=== PATIENT | male | born 2000 | race Two or more races ===

== ENCOUNTER 2023-07-12 12:11 | Emergency (ER) | payer OTHER ==
[~2023-07-12] VITALS: Ht 162.6 cm; Wt 80.7 kg
[2023-07-12] MEDS ORDERED: SUCRALFATE 1 G TABLET PO ONE (14:30)
[2023-07-12] MEDS ORDERED: 0.9 % SODIUM CHLORIDE 1,000 ML IV ONE (14:30)
[2023-07-12] MEDS ORDERED: ONDANSETRON HCL 2 MG/ML VIAL IV ONE (14:30)
[2023-07-12] MEDS ORDERED: FAMOTIDINE/PF 20 MG/2 ML VIAL IV ONE (14:30)
[2023-07-12 15:33] LABS: URINE APPEARANCE Clear; URINE BILIRRUBIN Negative (NEGATIVE); URINE BLOOD Negative; URINE COLOR Yellow; URINE GLUCOSE Negative (NEGATIVE); URINE LEUKOCYTE Negative; URINE NITRATE Negative; URINE PROTEIN Negative (NEGATIVE); URINE UROBILINOGEN 0.2 E.U./dl
[2023-07-12 15:34] LABS: URINE BACTERIA 22.6 uL (0.0-1933); URINE RBC 475.4 uL (0.0-20.8); URINE WBC 5.6 uL (0.0-23.2)
[2023-07-12 15:42] LABS: HEMATOCRIT 47.9 % (39.0-48.0); HEMOGLOBIN 15.9 g/dL (13-16.00); MEAN CELL VOLUME 76.1 fL (80.0-100.00); MEAN CORPUSCULAR HEMOGLOBIN 25.3 pg (27.00-32.0); MEAN CORPUSCULAR HGB CONC 33.3 g/dl (32.0-36.0); PLATELET COUNT 207 K/uL (150-450); RED BLOOD COUNT 6.29 M/uL (4.00-6.00); RED CELL DISTRIBUTION WIDTH 15.2 % (11.5-14.5)
[2023-07-12 15:59] LABS: ALBUMIN 4.1 gm/dL (3.4-5.0); BILIRUBIN TOTAL 1.03 mg/dL (0.3-1.2); CALCIUM 8.9 mg/dL (8.5-10.1); CREATININE SERUM 0.99 mg/dL (0.70-1.30); GFR 92.11; GLOBULINA 3.8 G/DL (2.4-3.5); POTASSIUM 3.71 mEq/L (3.5-5.1); TOTAL PROTEIN 7.9 gm/dL (6.4-8.2)
[2023-07-12] MEDS ORDERED: METHYLPREDNISOLONE SOD SUCC 125 MG VIAL IV ONE (18:15)
[2023-07-12] MEDS ORDERED: METOCLOPRAMIDE HCL 5 MG/ML VIAL IV ONE (18:15)
[2023-07-12] MEDS ORDERED: KETOROLAC TROMETHAMINE 30 MG VIAL IV ONE (18:15)
[2023-07-12] MEDS ORDERED: CARAFATE1 GM PO (19:07)
[2023-07-12] MEDS ORDERED: PEPCID AC20 MG PO (19:07)
[2023-07-12] MEDS ORDERED: PRILOSEC OTC20 MG PO (19:07)
[2023-07-12] MEDS ORDERED: ONDANSETRON HCL4 MG PO (19:08)
[2023-07-12] MEDS ORDERED: CIPRO500 MG PO (19:21)
== END 2023-07-12 19:28 | disposition home or self-care (01) ==
LOC: ER 12:12
PROVIDERS: Nurse Practitioner Family
DX: K29.70 Gastritis, unspecified, without bleeding (principal)

== ENCOUNTER → 2024-04-13 | Emergency (ER) | payer OTHER ==
[~2024-04-13] VITALS: Ht 162.6 cm; Wt 87.1 kg
[~2024-04-13] MED LIST: BUDESONIDE 0.5 MG/2 ML AMPUL.NEB IH STA; CARAFATE1 GM PO; CEFTRIAXONE SODIUM 1,000 MG VIAL IM STA; CIPRO500 MG PO; GUAIFENESIN 200 MG/10 ML BLIST.PACK PO STA; LEVALBUTEROL HCL 1.25 MG/3 ML SOLUTION IH SCH; METHYLPREDNISOLONE SOD SUCC 125 MG VIAL IM STA; ONDANSETRON HCL4 MG PO; PEPCID AC20 MG PO; PRILOSEC OTC20 MG PO
[2024-04-13 10:19] LABS: HEMATOCRIT 48.6 % (39.0-48.0); HEMOGLOBIN 16.1 g/dL (13-16.00); MEAN CELL VOLUME 79.3 fL (80.0-100.00); MEAN CORPUSCULAR HEMOGLOBIN 26.2 pg (27.00-32.0); MEAN CORPUSCULAR HGB CONC 33.1 g/dl (32.0-36.0); PLATELET COUNT 182 K/uL (150-450); RED BLOOD COUNT 6.13 M/uL (4.00-6.00); RED CELL DISTRIBUTION WIDTH 14.3 % (11.5-14.5)
== END | disposition home or self-care (01) ==
LOC: ER 07:52
PROVIDERS: General Practice
DX: R53.81 Other malaise (principal); J45.909 Unspecified asthma, uncomplicated; Z20.822 Contact with and (suspected) exposure to COVID-19